=== PATIENT | female | born 1965 | race Caucasian/White ===

== ENCOUNTER 2016-08-05 16:24 | Inpatient (IN) ==
[2016-08-05] MEDS ORDERED: MORPHINE 2 MG/1 ML SYRINGE IV STA (17:31)
[2016-08-05] MEDS ORDERED: ONDANSETRON 4 MG/2 ML VIAL IV STA (17:31)
[2016-08-05] MEDS ORDERED: ONDANSETRON 4 MG/2 ML VIAL ONE (18:02)
[2016-08-05] MEDS ORDERED: MORPHINE 2 MG/1 ML SYRINGE ONE (18:02)
--- NOTE | 2016-08-05 18:13 | XRay Report ---
Portable chest Date: 08/05/2016 Clinical history: Generalized abdominal pain Comparison: 05/14/2016 Technique: Portable AP sitting chest Findings: The heart is minimally enlarged. Expiratory chest with atelectasis at the lung bases. Stable mediastinum with degenerative changes. Impression: Expiratory chest with atelectasis at the lung bases. PROCEDURE INTERPRETED AT [facility] DEPARTMENT OF RADIOLOGY Final Report Signed by: Dr. Ara Shin
[2016-08-05 18:31] LABS: Basophils % 0.8 % (0.0-0.8); Eosinophils # 0.1 10*3/uL (0.0-0.87); Hemoglobin 10.7 GM/DL (12.0-16.0); Immature Granulocytes % 0.4 %; Immature Granulocytes Absolute 0.01 #; Lymphocytes # 1.1 10*3/uL (1.4-4.0); Lymphocytes % 42.7 % (21.3-54.2); Mean Corpuscular HGB Conc 31.5 GM/DL (32-36); Mean Corpuscular Hemoglobin 26 PG (27-34); Mean Corpuscular Volume 82.3 FL (87-102); Mean Platelet Volume 9.4 FL (9.6-12.0); Monocytes # 0.2 10*3/uL (0.11-0.8); Monocytes % 7.8 % (1.7-12.7); Neutrophils # 1.2 10*3/uL (1.4-7.4); Neutrophils % 46.3 % (38.7-73.9); Platelet Count 64 T/CUMM (130-400); Red Blood Count 4.13 MC/CUMM (3.8-5.5); Red Cell Distribution Width 15.5 % (9.3-17.3); White Blood Count 2.6 T/CUMM (4-12)
--- NOTE | 2016-08-05 18:44 | CT Report ---
Referring physician: Raghu Arce EXAM: CT abdomen and pelvis with contrast DATE: 08/05/2016 COMPARISON: 11/28/2015 REASON: Right abdominal pain with rebound TECHNIQUE: Axial images of the abdomen and pelvis were obtained after administration of 100 cc of Omnipaque 350 IV contrast. Oral contrast was also administered. Coronal and sagittal reformatted images were also provided. Total DLP is 1868.30 mGy*cm. FINDINGS: The heart is enlarged with pericardial effusion which measures 26 mm in depth posteriorly on both scans. Tiny bilateral pleural effusions with progressive atelectasis/groundglass opacities at the visualized lung bases. Minimal motion artifact on the scans. Elongation of the right lobe of the liver. The liver has an irregular contour with multiple ill-defined hypodensities. The largest finding still measures 12 mm in the posterior right lobe. Prior cholecystectomy with no dilated ducts. Persistent splenomegaly with a splenic index of 2663 compared to 2622 on the previous exam. Persistent varices with some recanalization of the umbilical vein. The pancreas, adrenal glands, and kidneys are stable in appearance. The abdominal aorta is normal in size with no adjacent adenopathy. No significant dilatation of the small bowel. Significant fecal material throughout the tortuous colon. Limited evaluation of the bowel without oral contrast including the appendix which is not identified. No evidence of diverticulitis or free air with very minimal free fluid. Prior hysterectomy with no definite urinary bladder pathology. Degenerative changes are noted. Thinning of the abdominal wall musculature especially at the level of the umbilicus. IMPRESSION: Cardiomegaly with stable pericardial effusion. Tiny bilateral pleural effusions with progressive atelectasis/groundglass opacities at the lung bases. Persistent enlargement of the the liver which has an irregular contour which can be seen with hepatocellular disease such as cirrhosis. Numerous small hypodensities are noted in the liver which have not changed significantly in size but have increased in number. These findings could be related to persistent cirrhotic nodules but again it is difficult to exclude metastatic disease with these findings. Stable splenomegaly with a splenic index of 2663. Varices with persistent minimal ascites. Significant increased fecal material in the colon consistent with constipation. Limited evaluation of bowel without oral contrast including the appendix which is not identified. Prior hysterectomy and cholecystectomy. The CT exam was performed using one or more of the following dose reduction techniques: Automated exposure control and adjustment of the mA and/or kV according to patient size. PROCEDURE INTERPRETED AT [facility] DEPARTMENT OF RADIOLOGY Final Report Signed by: Dr. Ara Shin
--- NOTE | 2016-08-05 18:47 | Emergency Department Note ---
Enoc Torres Brooke, am scribing for, and in the presence of, Raghu Arce MD 17:37. Yazmin Torres Phillip K, MD, personally performed the services described in this documentation, ascribed by Marian Stubbs in my presence, and it is both accurate and complete 846 . Arrival <Alek Neely - Last Filed: 08/05/16 19:40> - Arrival ED Nursing Triage Note: PT C/O PAIN TO RIGHT ABD THAT RADIATES TO RIGHT FLANK PAIN. PT HAS KNOWN LIVER LESIONS. PT STATES SHE HAS NOT HAD NORMAL BM IN 6 DAYS. REPORTS PASSING LIGHT RED BLOOD FROM RECTUM TODAY. DENIES DYSURIA OR HEMATURIA. Mode of Arrival: Ambulatory Limitations: No Limitations Source: Patient, RN Notes Reviewed - History of Present Illness Onset (ago): month(s) (2) Date of Last Menstrual Period: HYST <Raghu Arce - Last Filed: 08/06/16 06:07> - Arrival Chief Complaint: Abdominal / Flank Pain Stated Complaint: R side pain,lesions on liver,blood in stole Time Seen by Provider: 08/05/16 16:55 - History of Present Illness HPI Narrative: Patient is a 50 year old female who presents to the ED with c/o abdominal pain that is located on the right side. Patient says she has been having pain for the past two months and that Dr. Flanagan has been dealing with it. She describes the pain as "menstrual cramps" but states she has had a hysterectomy. She says her abdomen feels distended. Patient says she has had a "radioactive egg test" and it was negative. She says she had a bone marrow test that came out fine. Patient says Dr. Flanagan told her that she has lesions on her liver. Patient says she has not had a bowel movement in a week. She was given Reglan but says it makes her "sick." Patient says she is unable to eat because the pain is worsened by food. Patient says she has lost a lot of weight. She denies any fever but says she has had nausea and vomiting. Patient also complains of ecchymosis to her left arm that was caused from a fall. Patient has PMHx of PVD , heart murmur, depression, vertigo, dyslipidema, diabetes, kidney stones, and anemia. Patient is not a smoker and does not drink any alcohol. Patient sees a Primary Care Provider at the [facility]. (Marian Stubbs) Patient is a 50 year old female who presents to the ED with c/o abdominal pain that is located on the right side. Patient says she has been having pain for the past two months and that Dr. Flanagan has been dealing with it. She describes the pain as "menstrual cramps" but states she has had a hysterectomy. She says her abdomen feels distended. Patient says she has had a "radioactive egg test" and it was negative. She says she had a bone marrow test that came out fine. Patient says Dr. Flanagan told her that she has lesions on her liver. Patient says she has not had a bowel movement in a week. She was given Reglan but says it makes her "sick." Patient says she is unable to eat because the pain is worsened by food. Patient says she has lost a lot of weight. She denies any fever but says she has had nausea and vomiting. Patient also complains of ecchymosis to her left arm that was caused from a fall. Patient has PMHx of PVD , heart murmur, depression, vertigo, dyslipidema, diabetes, kidney stones, and anemia. Patient is not a smoker and does not drink any alcohol. Patient sees a Primary Care Provider at the [facility]. (Raghu Arce) Allergies/Adverse Reactions: Allergies Allergy/AdvReac Type Severity Reaction Status Date / Time hydrocodone Allergy ITCHING Verified 08/05/16 16:32 promethazine [From Phenergan] AdvReac Redness of Verified 08/05/16 16:32 Skin Home Medications: Home Medications Medication Instructions Recorded Confirmed Type Doxepin [SINEquan] 100 mg PO BEDTIME 12/27/14 08/05/16 History Estrogens(Conj) Tab [Premarin Tab] 0.9 mg PO DAILY 12/27/14 08/05/16 History Furosemide Tab [Lasix Tab] 20 mg PO DAILY 12/27/14 08/05/16 History Insulin Aspart [NovoLOG FlexPen] 15 unit SUBCUT TID 12/27/14 08/05/16 History Insulin Glargine [Lantus] 60 unit SUBCUT BID 12/27/14 08/05/16 History Prazosin [Minipress] 2 mg PO BEDTIME 12/27/14 08/05/16 History QUEtiapine [SEROquel] 800 mg PO BEDTIME 12/27/14 08/05/16 History Zolpidem [Ambien] 2.5 mg PO BEDTIME 12/27/14 08/05/16 History metFORMIN [Glucophage] 1,000 mg PO BID W/MEALS 12/27/14 08/05/16 History Levothyroxine Tab [Synthroid Tab] 100 mcg PO DAILY 11/28/15 08/05/16 History Omeprazole 40 mg PO DAILY 05/08/16 08/05/16 History clonazePAM [Clonazepam] 1 mg PO BID 05/08/16 08/05/16 History PARoxetine [Paxil] 40 mg PO DAILY tablet 05/17/16 08/05/16 Rx Review of System - Review of System 12 point system: reviewed and no additional remarkable complaints except as stated - Review of System Constitutional: Absent: fever Respiratory: Absent: respiratory distress Gastrointestinal: Present: abdominal pain (right side), nausea, vomiting, constipation Skin: Present: other (ecchymosis left arm). Absent: rash <Raghu Arce - Last Filed: 08/06/16 06:07> Medical,Surgical,& Family Hx - Medical History Cardio: History of: PVD, Cardiovascular Problems (HEART MURMUR) Psychological: History of: Depression, Psychiatric Problems (night terrors) Neurology: History of: Vertigo Endocrine: History of: Diabetes Mellitus (IDDM), Diabetes Mellitus (NIDDM), Dyslipidemia Genitourinary: History of: Kidney Stones Gastrointestinal: History of: Liver Problems (liver lesions) Hematology: History of: Anemia - Surgical History Abdominal Surgeries: Surgical HX of: Cholecystectomy Reproductive Surgeries: Surgical HX of;: Hysterectomy - Family History Family History: Reports;: Family Cancer (mother, four maternal aunts, maternal grandmother), Family Heart Disease (paternal), Family Hypertension (paternal) - Social History Smoking Status: Former smoker Frequency of Alcohol Use: None Type of Drug Use: None <Raghu Arce - Last Filed: 08/06/16 06:07> Exam - General General appearance: alert, in no apparent distress - Head Head exam: Present: atraumatic, normocephalic - Eye Eye exam: Present: normal appearance, PERRL, EOMI - ENT ENT exam: Present: mucous membranes dry - Neck Neck exam: Present: normal inspection - Chest Chest inspection: Present: normal inspection, symmetric chest wall rise - Respiratory Respiratory exam: Present: normal lung sounds bilaterally - Cardiovascular Cardiovascular exam: Present: regular rate, normal rhythm, normal heart sounds - Abdominal Exam Abdominal exam: Present: distention, tenderness (to direct palpation mostly on right side but all over.), rebound, normal bowel sounds, other (Referred pain to the RLQ). Absent: soft - Extremities Exam Extremities exam: Present: normal inspection - Back Exam Back exam: Present: normal inspection - Neurological Exam Neurological exam: Present: alert, oriented X3 - Psychiatric Psychiatric exam: Present: normal affect, normal mood - Skin Skin exam: Present: warm, dry, intact, normal color <Raghu Arce - Last Filed: 08/06/16 06:07> Vital Signs: Vital Signs Temperature 97.5 F L 08/06/16 00:00 Pulse Rate 78 08/06/16 00:00 Respiratory Rate 18 08/06/16 02:00 Blood Pressure 94/51 08/06/16 00:00 O2 Sat by Pulse Oximetry 94 L 08/05/16 21:42 Course <Alek Neely - Last Filed: 08/05/16 19:40> <Raghu Arce - Last Filed: 08/06/16 06:07> Course Narrative: This patient was evaluated with lab work and CT scan of the abdomen and pelvis as well as chest x-ray. Her urinalysis is still pending right now but her lab work shows stable pancytopenia related to her cirrhosis with portal hypertension and thrombocytopenia. Her alkaline phosphatase is slightly elevated but the rest of her LFTs and lipase are normal. Her CT scan shows really no changes compared to a CT of abdomen and pelvis from November 2015. The report was read as constipation with nonvisualization of the appendix but I feel like I can see the appendix very easily on the CT scan and it has air in it and does not look dilated, thickened, or have any significant stranding around it. The skin is demonstrating some ascites fluid which is likely due to the patient's cirrhosis and portal hypertension with recanalization of her umbilical vein with multiple varices but this does make the study difficult as far as stranding goes because of some fluid down there already. Because she is not able to tolerate p.o. she has had chronic abdominal pain being worked up by her finished cloth checker I recommended medical admission for pain medication and further treatment after being seen by her finished cloth checker tomorrow. I have spoken with Dr. Castillo who agreed to send someone to come and see the patient from the hospitalist service. (Alek Neely) Results - Labs CBC & BMP: 08/05/16 18:22 08/05/16 18:22 <Alek Neely - Last Filed: 08/05/16 19:40> - Labs CBC & BMP: 08/05/16 18:22 08/05/16 18:22 Lab Results: I have reviewed the patients labs - Diagnostic Findings Procedure: Chest x-ray: report reviewed by me (Expiratory chest with atelectasis at the lung bases.), CT Abdomen and Pelvis: report reviewed by me ( cirrhosis, small pleural effusions, small pericardial effusion unchanged, varices, constipation, the appendix was not identified.) <Raghu Arce - Last Filed: 08/06/16 06:07> - Labs Labs: Laboratory Tests 08/05/16 08/05/16 17:54 18:22 WBC 2.6 L Hgb 10.7 L Hct 34.0 L MCV 82.3 L MCH 26 L MCHC 31.5 L Plt Count 64 L MPV 9.4 L Neut # (Auto) 1.2 L Lymph # (Auto) 1.1 L POC Creatinine 0.46 L (Marian Stubbs) Laboratory Tests 08/05/16 08/05/16 17:54 18:22 WBC 2.6 L Hgb 10.7 L Hct 34.0 L MCV 82.3 L MCH 26 L MCHC 31.5 L Plt Count 64 L MPV 9.4 L Neut # (Auto) 1.2 L Lymph # (Auto) 1.1 L POC Creatinine 0.46 L (Raghu Arce) Disposition Case discussed with: patient Time of Disposition: 19:42 <Alek Neely - Last Filed: 08/05/16 19:40> Case discussed with: patient <Raghu Arce - Last Filed: 08/06/16 06:07> Clinical Impression: Gastroenteritis, Abdominal pain Disposition: Still a Patient Condition: Stable
[2016-08-05 18:50] LABS: Albumin 3.6 G/DL (3.4-5.0); Bilirubin,Total 0.6 MG/DL (0.2-1.0); Calcium 8.6 MG/DL (8.5-10.1); Magnesium 1.5 MG/DL (1.8-2.4); Osmolality,Calculated 277.4 MOS/KG (273-304); Potassium 3.6 MMOL/L (3.5-5.1); Total Protein 7.5 G/DL (6.4-8.3)
[2016-08-05] MEDS ORDERED: SODIUM CHLORIDE 0.9% 1,000 ML IV STA (18:56)
--- NOTE | 2016-08-05 20:06 | Hospitalist History & Physical ---
Assessment and Plan - Time spent with patient Time spent with patient: Greater than 30 minutes (1) Right lower quadrant abdominal pain Status: Acute Assessment and plan: Patient has acute on chronic right lower quadrant abdominal pain. Will admit her and hydrate, provide parenteral antiemetics and analgesics overnight and ask her gastroenterology professor to reevaluate. I will defer any general surgical consultation to the GI service. Current Visit: Yes (2) Diabetes mellitus Status: Chronic Assessment and plan: Patient has diabetes mellitus and requires insulin. Will continue her current insulin regimen and begin Accu-Cheks with sliding scale. Current Visit: Yes Qualifiers: Diabetes mellitus type: type 2 (3) Micronodular cirrhosis of liver, non-alcoholic Status: Chronic Assessment and plan: Patient apparently has a history of cirrhosis of the liver. Have consulted gastroenterology to give further history and any new recommendations at this time. Current Visit: No (4) Pancytopenia Problem details: longstanding pancytopenia Status: Chronic Assessment and plan: Patient has pancytopenia which is chronic and likely secondary to underlying liver disease. She has had prior bone marrow biopsy. Her counts are currently stable at this time there is no evidence of active bleeding. We will continue to follow. Current Visit: No (5) Gastroparesis Status: Chronic Assessment and plan: Patient has history of gastroparesis and states that she is intolerant to her Reglan. Again we will hydrate and consult gastroenterology for further recommendations. Current Visit: Yes (6) Constipation Status: Chronic Assessment and plan: Patient has history of chronic constipation. CAT scan reveals large amount of feces. This may be exacerbating her pain and I will attempt to provide lactulose overnight if she can tolerate. Gastroenterology has been consulted as well. Current Visit: Yes History of Present Illness Chief complaint: Abdominal pain History of present illness: Ms. Cummings is a 50 year old female who is been followed by Dr. Flanagan for approximately 6 months secondary to chronic abdominal pain. She states that she has had upper and lower endoscopy as well as gastric emptying study. She has continued pain which increased in intensity and is localized to the right lower quadrant today. She states that she was prescribed metoclopramide approximately 12 days ago for gastroparesis however it makes her nauseated and vomit. She also states that she stays constipated and only has a bowel movement once every 12 days and does have occasional rectal bleeding associated with the last occurring this morning. She states that she feels cold and then hot and has had some subjective fevers at home. There has been no weight loss, chest pain, shortness breath, cough, sputum production, abnormal bleeding or bruising. She was evaluated in our emergency room today because of continued right lower quadrant pain is felt that she would benefit from observation, hydration, gastroenterology and/or general surgical consultation to assist. Home Medications Medication Instructions Recorded Confirmed Type Doxepin [SINEquan] 100 mg PO BEDTIME 12/27/14 08/05/16 History Estrogens(Conj) Tab [Premarin Tab] 0.9 mg PO DAILY 12/27/14 08/05/16 History Furosemide Tab [Lasix Tab] 20 mg PO DAILY 12/27/14 08/05/16 History Insulin Aspart [NovoLOG FlexPen] 15 unit SUBCUT TID 12/27/14 08/05/16 History Insulin Glargine [Lantus] 60 unit SUBCUT BID 12/27/14 08/05/16 History Prazosin [Minipress] 2 mg PO BEDTIME 12/27/14 08/05/16 History QUEtiapine [SEROquel] 800 mg PO BEDTIME 12/27/14 08/05/16 History Zolpidem [Ambien] 2.5 mg PO BEDTIME 12/27/14 08/05/16 History metFORMIN [Glucophage] 1,000 mg PO BID W/MEALS 12/27/14 08/05/16 History Levothyroxine Tab [Synthroid Tab] 100 mcg PO DAILY 11/28/15 08/05/16 History Omeprazole 40 mg PO DAILY 05/08/16 08/05/16 History clonazePAM [Clonazepam] 1 mg PO BID 05/08/16 08/05/16 History PARoxetine [Paxil] 40 mg PO DAILY tablet 05/17/16 08/05/16 Rx Allergies Allergy/AdvReac Type Severity Reaction Status Date / Time hydrocodone Allergy ITCHING Verified 08/05/16 16:32 promethazine [From Phenergan] AdvReac Redness of Verified 08/05/16 16:32 Skin Medical,Surgical,& Family Hx - Medical History Cardio: History of: PVD, Cardiovascular Problems (HEART MURMUR) Psychological: History of: Depression, Psychiatric Problems (night terrors) Neurology: History of: Vertigo Endocrine: History of: Diabetes Mellitus (NIDDM), Dyslipidemia Genitourinary: History of: Kidney Stones Gastrointestinal: History of: Liver Problems (liver lesions) Hematology: History of: Anemia - Surgical History Abdominal Surgeries: Surgical HX of: Cholecystectomy Reproductive Surgeries: Surgical HX of;: Hysterectomy - Family History Family History: Reports;: Family Cancer (mother, four maternal aunts, maternal grandmother), Family Heart Disease (paternal), Family Hypertension (paternal) - Social History Smoking Status: Former smoker Frequency of Alcohol Use: None Type of Drug Use: None 12 point system: reviewed and no additional remarkable complaints except as stated Exam - Constitutional Vitals: Period Temp Pulse Resp BP Sys/Leija Pulse Ox Last 24 Hr 97.6 F 90 18 117/78 96 General appearance: mild distress - Head Head exam: Present: normocephalic, atraumatic - Eye Eye exam: Present: EOMI. Absent: scleral icterus Pupils: Present: NICOLA - ENT ENT exam: Present: normal oropharynx - Neck Neck exam: Present: normal inspection. Absent: lymphadenopathy, meningismus, tenderness, thyromegaly - Respiratory Respiratory exam: Present: clear to auscultation bilaterally. Absent: accessory muscle use, rales, rhonchi, wheezes - Cardiovascular Cardiovascular exam: Present: regular rate and rhythm. Absent: gallop, JVD, systolic murmur, tachycardia - GI/Abdominal GI/Abdominal exam: Present: normal bowel sounds, tenderness (She has diffuse tenderness which is greater in the right lower quadrant with no rebound noted at this time), soft. Absent: distended, mass - Extremities Exam Extremities exam: Present: normal capillary refill. Absent: calf tenderness, edema - Back Exam Back exam: Present: normal inspection. Absent: CVA tenderness (L), CVA tenderness (R) - Neurological Exam Neurological exam: Present: alert, oriented X3, CN II-XII intact. Absent: motor sensory deficit - Psychiatric Psychiatric exam: Present: normal affect, normal mood. Absent: agitated, anxious - Skin Skin exam: Present: warm, dry. Absent: petechiae, rash Results - Labs CBC & BMP: 08/05/16 18:22 08/05/16 18:22 Lab Results: I have reviewed the past 24 hour labs - Diagnostic Findings Procedure: CT Abdomen and Pelvis: report reviewed by me
[2016-08-05 20:15] LABS: INR 1.1; PT Patient Result 12.1 SECS; Partial Thromboplastin Time 28.4 SECS (0-40)
[2016-08-05 20:16] LABS: Apearance,Urine CLEAR (Clear); Bilirubin,Urine Negative (Negative); Blood, Urine Negative (Negative); Glucose,Urine (UA) Negative (Negative); Ketones,Urine Negative (Negative); Nitrite,Urine Negative (Negative); Protein,Urine Negative; RBC,Urine <1 /HPF (0-4); Squamous Epithelial Cell,Urine Occasional /HPF (0-10); Urine Color Yellow (Yellow); Urine Specific Gravity > 1.060 (1.001-1.035); WBC,Urine <1 /HPF (0-6)
[2016-08-05] MEDS ORDERED: GLUCAGON 1 MG VIAL IM PRN (21:41)
[2016-08-05] MEDS ORDERED: QUEtiapine 100 MG TABLET PO SCH (21:41)
[2016-08-05] MEDS ORDERED: MAGNESIUM SULF INJ 3 GM in SODIUM CHLORIDE 0.9% 100 ML IV ONE (21:41)
[2016-08-05] MEDS ORDERED: MORPHINE 2 MG/1 ML SYRINGE IV PRN (21:41)
[2016-08-05] MEDS ORDERED: ONDANSETRON 4 MG/2 ML VIAL IV PRN (21:41)
[2016-08-05] MEDS ORDERED: DEXTROSE 50% 25 GM/50 ML VIAL IV PRN (21:41)
[2016-08-05] MEDS ORDERED: LACTULOSE 20 GM/30 ML UDCUP PO SCH (21:41)
[2016-08-05] MEDS: SODIUM CHLOR 0.9% KCL 40 MEQ 40 MEQ/1,000 ML BAG IV SCH (23:36)
[2016-08-05] MEDS: ZALEPLON 5 MG CAPSULE PO SCH (23:50)
[2016-08-05] MEDS: PRAZOSIN 1 MG CAPSULE PO SCH (23:51)
[2016-08-05] MEDS: clonazePAM 0.5 MG TABLET PO SCH (23:51)
[2016-08-05] MEDS: DOXEPIN 100 MG CAPSULE PO SCH (23:52)
[2016-08-05] MEDS: INSULIN GLARGINE 100 UNIT/ML SUBCUT SCH (23:55)
[2016-08-05] MEDS: INSULIN REGULAR 100 UNIT/ML SUBCUT SCH (23:55)
[2016-08-06 06:00] LABS: Basophils % 0.4 % (0.0-0.8); Eosinophils # 0.1 10*3/uL (0.0-0.87); Hematocrit 31.5 VOL% (35.7-47.0); Hemoglobin 9.7 GM/DL (12.0-16.0); Lymphocytes # 1.2 10*3/uL (1.4-4.0); Lymphocytes % 49.4 % (21.3-54.2); Mean Corpuscular HGB Conc 30.8 GM/DL (32-36); Mean Corpuscular Hemoglobin 26 PG (27-34); Mean Corpuscular Volume 83.6 FL (87-102); Mean Platelet Volume 9.7 FL (9.6-12.0); Monocytes # 0.2 10*3/uL (0.11-0.8); Monocytes % 7.2 % (1.7-12.7); Platelet Count 70 T/CUMM (130-400); Red Blood Count 3.77 MC/CUMM (3.8-5.5); Red Cell Distribution Width 15.8 % (9.3-17.3); White Blood Count 2.5 T/CUMM (4-12)
[2016-08-06 06:19] LABS: Hypochromasia 1+; Ovalocytes Slight; Platelet Estimate Decreased
[2016-08-06 06:20] LABS: Microcytosis Slight
[2016-08-06 06:32] LABS: Albumin 3.1 G/DL (3.4-5.0); Bilirubin,Total 1.1 MG/DL (0.2-1.0); Calcium 7.9 MG/DL (8.5-10.1); Osmolality,Calculated 287.7 MOS/KG (273-304); Potassium 3.8 MMOL/L (3.5-5.1); Total Protein 6.6 G/DL (6.4-8.3)
[2016-08-06] MEDS: LEVOTHYROXINE 100 MCG TABLET PO SCH (06:46)
[2016-08-06] MEDS ORDERED: PANTOPRAZOLE 40 MG TABLET PO SCH (09:00)
--- NOTE | 2016-08-06 09:08 | Gastrointestinal Progress Note ---
Assessment and Plan (1) Constipation Status: Chronic Assessment and plan: As mentioned in the office note from 07/24/16 and in my summary below, this patient's family has a history of colonic inertia and she has a history of chronic constipation which is required Linzess and MiraLAX. 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 Her compliance with the outpatient regimen is not clear. She does not need narcotics she could possibly have her pain treated with some Toradol but I would use this sparingly. We will clean her out with a bowel prep which has worked in the past, clear liquid diet, MiraLAX 3 times daily for her bowel movements, and will restart her outpatient Linzess 290 mg per day. I suspect this will get her bowels running adequately. Whether we can keep them running is another question when she leaves the hospital. She has a mindset that she will likely only get cured with surgery. Current Visit: Yes (2) Micronodular cirrhosis of liver, non-alcoholic Status: Chronic Assessment and plan: This patient has a micronodular cirrhosis which has resulted in hepatic encephalopathy but not ascites in the past. Her ammonia level is slightly elevated at 68 but she is also been not having any bowel movements. She is not on any lactulose at the present time as I am trying to avoid the bloating with this medication. This is made her sick in the past and she does not seem confused to me now. We will check this on a daily basis as we get her bowels running. If it lapses above 80-90 mg/dL we will simply have to start the lactulose again or put her on Xifaxan 550 mg p.o. twice daily as an alternative. Current Visit: No (3) Pancytopenia Problem details: longstanding pancytopenia Status: Chronic Assessment and plan: Dr. Kee has evaluated this in the past with a bone marrow biopsy and this was relatively unrevealing. She is getting iron supplementation, her hematocrit is stable at 31-34%. No further workup on this issue. Current Visit: No (4) Hepatic encephalopathy Status: Acute Assessment and plan: As mentioned above I believe this is probably stable at the present time, we will continue to watch her mentation and decide whether or not further intervention with lactulose initiation or side effects and will be required based on how this trends after the patient is emptying her colon better. Current Visit: No Gastroenterology - PN: Subj Interval history: I have been seeing this patient for multiple problems since November 2015. She has most recently been seen for the same problem with which she presents as an outpatient as recently as 07/24/16 with "intractable" constipation. It appears that her mother had a history of what sounds like colonic inertia and she feels that she is developing the same. I am unclear as to whether or not she is following her bowel regimen at home. She takes Linzess as an outpatient 290 mg per day and was recently given a bowel prep and told to start taking her MiraLAX at a higher level of use 2-3 times a day as needed for her constipation in addition to taking the Linzess. She was recently taken off of her lactulose hoping that the decrease in bloating would lead to better digestion albeit in a slightly higher risk of hepatic encephalopathy which she does not appear to be displaying at this time. She does have cirrhosis documented by biopsy which is thought to be caused by nonalcoholic fatty liver disease as well as gastritis and gastroparesis. She has anemia thought to be iron deficiency by Dr. Kee. She has had both colonoscopy and EGD with most recent colonoscopy being on 12/03/15 which was completely normal. EGD demonstrated linear gastritis somewhat dilated duodenum. Please see my included notes in the front of the chart for all these relevant details. Currently we are trying to treat her gastroparesis with some Reglan and she has been switched from liquid to the p.o. pills and she found liquid difficult to tolerate. Ultimately I believe her goal is to try and get a diagnosis of colonic inertia so she can have a surgery resulting in a subtotal colectomy which would cure her constipation. In order to meet criteria to have this done she would have to fail a Sitz marker study on "reasonable therapy". Exam (Progress Note) - Constitutional Vitals: Period Temp Pulse Resp BP Sys/Leija Pulse Ox Last 24 Hr 97.5 F-98.5 F 76-98 16-20 94-124/51-74 92-95 General appearance: mild distress - Head Head exam: Present: normocephalic - Eye Eye exam: Present: EOMI - Respiratory Respiratory exam: Present: clear to auscultation bilaterally. Absent: rhonchi, stridor, wheezes - Cardiovascular Cardiovascular exam: Present: regular rate and rhythm - GI/Abdominal GI/Abdominal exam: Present: normal bowel sounds, distended, tenderness, soft. Absent: ascites, guarding, rebound - Neurological Exam Neurological exam: Present: alert, oriented X3, CN II-XII intact - Psychiatric Psychiatric exam: Present: normal affect, depressed - Skin Skin exam: Present: warm Results - Labs CBC & BMP: 08/06/16 05:32 08/06/16 05:32
[2016-08-06] MEDS: KETOROLAC 30 MG/1 ML VIAL IV PRN ×2 (09:38→16:28)
[2016-08-06] MEDS: INSULIN REGULAR 100 UNIT/ML SUBCUT SCH ×4 (09:39→20:55)
[2016-08-06] MEDS: SODIUM PHOSPHATE ENEMA 133 ML BOTTLE RECTAL SCH ×2 (09:39→10:38)
[2016-08-06] MEDS: clonazePAM 0.5 MG TABLET PO SCH ×2 (09:39→21:15)
[2016-08-06] MEDS: FUROSEMIDE 20 MG TABLET PO SCH (09:39)
[2016-08-06] MEDS: PARoxetine 20 MG TABLET PO SCH (09:39)
[2016-08-06] MEDS: INSULIN GLARGINE 100 UNIT/ML SUBCUT SCH ×2 (09:40→21:15)
[2016-08-06] MEDS: metFORMIN 500 MG TABLET PO SCH ×2 (09:40→18:49)
[2016-08-06] MEDS: INSULIN LISPRO 100 UNIT/ML SUBCUT SCH ×3 (09:40→18:49)
[2016-08-06] MEDS ORDERED: POLYETHYLENE GLYCOL POWDER 255 GM BOTTLE PO ONE (10:00)
[2016-08-06] MEDS: ESTROGENS (CONJ) 0.3 MG TABLET PO SCH (10:38)
[2016-08-06] MEDS: LINACLOTIDE 145 MCG CAPSULE PO SCH (10:38)
[2016-08-06] MEDS: SODIUM CHLOR 0.9% KCL 40 MEQ 40 MEQ/1,000 ML BAG IV SCH ×3 (10:39→23:04)
[2016-08-06] MEDS: METOCLOPRAMIDE 10 MG/2 ML VIAL IV SCH ×2 (12:46→19:24)
[2016-08-06] MEDS ORDERED: MORPHINE 2 MG/1 ML SYRINGE IV PRN (13:34)
--- NOTE | 2016-08-06 14:11 | Hospitalist Progress Note ---
Assessment and Plan - Time spent with patient Time spent with patient: Greater than 30 minutes (1) Right flank pain Status: Acute Assessment and plan: CT is inconclusive. Patient states she had no relief with bowel movement, and that in fact it hurts more. Appendix was not visualized. We'll consult surgery. Current Visit: Yes (2) Constipation Status: Chronic Assessment and plan: Has had many bowel movements with enemas. Continue to manage Current Visit: Yes (3) Micronodular cirrhosis of liver, non-alcoholic Status: Chronic Assessment and plan: Pancytopenia and elevated ammonia levels. GI is involved. Appreciate assistance. Current Visit: No (4) Diabetes mellitus Status: Chronic Assessment and plan: Continue current management. Current Visit: Yes Qualifiers: Diabetes mellitus type: type 2 (5) Hypothyroidism Status: Acute Assessment and plan: Obtain TSH. Continue management. Current Visit: Yes Hospitalist: Subjective Interval history: Admitted for evaluation of abdominal pain, reports worsening right lower quadrant pain. Exam - Constitutional Vitals: Period Temp Pulse Resp BP Sys/Leija Pulse Ox Last 24 Hr 97.5 F-98.5 F 76-98 16-20 94-124/51-74 92-95 General appearance: no acute distress - Head Head exam: Present: normocephalic, atraumatic - Eye Eye exam: Present: EOMI Pupils: Present: NICOLA - ENT ENT exam: Present: normal exam - Neck Neck exam: Present: normal inspection - Respiratory Respiratory exam: Present: clear to auscultation bilaterally. Absent: rhonchi, wheezes - Cardiovascular Cardiovascular exam: Present: regular rate and rhythm. Absent: gallop, rubs, systolic murmur - GI/Abdominal GI/Abdominal exam: Present: normal bowel sounds, tenderness, soft. Absent: distended, firm, guarding, rebound - Extremities Exam Extremities exam: Present: normal inspection. Absent: calf tenderness, edema Results - Labs CBC & BMP: 08/06/16 05:32 08/06/16 05:32 Lab Results: I have reviewed the past 24 hour labs Quality Measures - VTE Contraindication to Pharmacological VTE Prophylaxis: Thrombocytopenia
--- NOTE | 2016-08-06 16:42 | General Surgery Consult Note ---
Assessment and Plan - Time spent with patient Time spent with patient: Less than 30 minutes (1) Right lower quadrant abdominal pain Status: Acute Assessment and plan: The etiology of her pain is unclear. It appears to be chronic. It may be related to her recent stopping of narcotics. Her pain is really more in her groin on exam than on her abdomen. There does not appear to be much association with her chronic GI complaints. I cannot detect a hernia on physical exam with her coughing straining or Valsalva. I reviewed her CT scan images myself and cannot see a hernia. I do not see much that I can offer surgically that is likely to help. She certainly is a very high surgical risk with her cirrhosis. I think that it would be worthwhile for her to be evaluated by her pain management doctors for consideration of a nerve block in her groin. This could be accomplished as an outpatient with her regular physician. Current Visit: Yes History of Present Illness Chief complaint: abdominal pain History of present illness: Ms. Cummings is a 50 year old female Who for over a year has had pain in her right lower quadrant. She describes the pain as being very low in her right lower quadrant and more in her groin area. This pain is worse when she moves or stands or twists. She has chronic GI complaints that are not really affected by the pain. She has chronic bloating. She describes the pain as being moderate to severe. She sees the pain treatment clinic at the [facility]. She is been on chronic narcotics but they stopped this about a month ago. Home Medications Medication Instructions Recorded Confirmed Type Doxepin [SINEquan] 100 mg PO BEDTIME 12/27/14 08/05/16 History Estrogens(Conj) Tab [Premarin Tab] 0.9 mg PO DAILY 12/27/14 08/05/16 History Furosemide Tab [Lasix Tab] 20 mg PO DAILY 12/27/14 08/05/16 History Insulin Aspart [NovoLOG FlexPen] 15 unit SUBCUT TID 12/27/14 08/05/16 History Insulin Glargine [Lantus] 60 unit SUBCUT BID 12/27/14 08/05/16 History Prazosin [Minipress] 2 mg PO BEDTIME 12/27/14 08/05/16 History QUEtiapine [SEROquel] 800 mg PO BEDTIME 12/27/14 08/05/16 History Zolpidem [Ambien] 2.5 mg PO BEDTIME 12/27/14 08/05/16 History metFORMIN [Glucophage] 1,000 mg PO BID W/MEALS 12/27/14 08/05/16 History Levothyroxine Tab [Synthroid Tab] 100 mcg PO DAILY 11/28/15 08/05/16 History Omeprazole 40 mg PO DAILY 05/08/16 08/05/16 History clonazePAM [Clonazepam] 1 mg PO BID 05/08/16 08/05/16 History PARoxetine [Paxil] 40 mg PO DAILY tablet 05/17/16 08/05/16 Rx Allergies Allergy/AdvReac Type Severity Reaction Status Date / Time hydrocodone Allergy ITCHING Verified 08/05/16 16:32 promethazine [From Phenergan] AdvReac Redness of Verified 08/05/16 16:32 Skin Medical,Surgical,& Family Hx - Medical History Cardio: History of: PVD, Cardiovascular Problems (HEART MURMUR) Psychological: History of: Depression, Psychiatric Problems (night terrors) Neurology: History of: Vertigo Endocrine: History of: Diabetes Mellitus (IDDM), Diabetes Mellitus (NIDDM), Dyslipidemia Genitourinary: History of: Kidney Stones Gastrointestinal: History of: Liver Problems (liver lesions), GI Problems ( constipation) Hematology: History of: Anemia - Surgical History Thoracic Surgeries: Surgical HX of;: Lithotripsy Abdominal Surgeries: Surgical HX of: Cholecystectomy Reproductive Surgeries: Surgical HX of;: Hysterectomy - Family History Family History: Reports;: Family Cancer (mother, four maternal aunts, maternal grandmother), Family Heart Disease (paternal), Family Hypertension (paternal) Denies;: Family Anesthesia Reaction, Family Diabetes, Family Hematology, Family Psychiatric Problems, Family Stroke, Additional Family History - Social History Smoking Status: Former smoker Frequency of Alcohol Use: None Type of Drug Use: None - Constitutional Constitutional: Absent: chills, fever(s) - Cardiovascular Cardiovascular: Absent: chest pain at rest, chest pain with activity, syncope - Respiratory Respiratory: Absent: dyspnea, hemoptysis, dyspnea on exertion - Gastrointestinal Gastrointestinal: Present: abdominal pain, bloating, constipation, cramping. Absent: hematemesis, hematochezia, nausea, vomiting, jaundice - Genitourinary Genitourinary: Absent: dysuria, hematuria - Musculoskeletal Musculoskeletal: Present: back pain - Neurological Neurological: Absent: focal weakness, syncope - Endocrine Endocrine: Absent: polyuria Hematologic/Lymphatic: Absent: easy bleeding, easy bruising Exam - Constitutional Vitals: Period Temp Pulse Resp BP Sys/Leija Pulse Ox Last 24 Hr 97.6 F 76 18 124/82 93 General appearance: no acute distress, morbidly obese - Head Head exam: Present: normocephalic - Eye Eye exam: Absent: scleral icterus - ENT Mouth exam: Present: normal voice - Neck Neck exam: Present: trachea midline. Absent: tenderness, thyromegaly - Respiratory Respiratory exam: Present: clear to auscultation bilaterally. Absent: accessory muscle use - Cardiovascular Cardiovascular exam: Present: RRR - GI/Abdominal GI/Abdominal exam: Present: soft. Absent: distended, guarding, hernia, mass, tenderness, rebound - Extremities Exam Extremities exam: Absent: edema - Back Exam Back exam: Present: normal inspection. Absent: vertebral tenderness - Neurological Exam Neurological exam: Present: alert, oriented X3. Absent: motor sensory deficit Speech: Present: normal - Skin Skin exam: Present: normal color Quality Measures - VTE Contraindication to Pharmacological VTE Prophylaxis: Thrombocytopenia Results - Labs CBC & BMP: 08/06/16 05:32 08/06/16 05:32 Lab Results: I have reviewed the past 24 hour labs - Diagnostic Findings Procedure: CT Abdomen and Pelvis: image reviewed by me, report reviewed by me
[2016-08-06] MEDS ORDERED: PANTOPRAZOLE 40 MG VIAL IV SCH (21:00)
[2016-08-06] MEDS: ZALEPLON 5 MG CAPSULE PO SCH (21:15)
[2016-08-06] MEDS: DOXEPIN 100 MG CAPSULE PO SCH (23:00)
[2016-08-06] MEDS: PRAZOSIN 1 MG CAPSULE PO SCH (23:00)
[2016-08-07] MEDS: METOCLOPRAMIDE 10 MG/2 ML VIAL IV SCH ×2 (00:05→06:22)
[2016-08-07] MEDS: SODIUM CHLOR 0.9% KCL 40 MEQ 40 MEQ/1,000 ML BAG IV SCH ×2 (05:36→13:30)
[2016-08-07 06:10] LABS: Free T4 (Free Thyroxine) 0.81 NG/DL (0.76-1.46); Thyroid Stimulating Hormone 1.02 uIU/ml (0.358-3.74)
[2016-08-07] MEDS: LEVOTHYROXINE 100 MCG TABLET PO SCH (06:22)
[2016-08-07] MEDS: INSULIN REGULAR 100 UNIT/ML SUBCUT SCH ×4 (08:26→20:49)
--- NOTE | 2016-08-07 08:55 | Gastrointestinal Progress Note ---
Assessment and Plan (1) Constipation Status: Chronic Assessment and plan: As mentioned in the office note from 07/24/16 and in my summary below, this patient's family has a history of colonic inertia and she has a history of chronic constipation which is required Linzess and MiraLAX. 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 Her compliance with the outpatient regimen is not clear. She does not need narcotics she could possibly have her pain treated with some Toradol but I would use this sparingly. We will clean her out with a bowel prep which has worked in the past, clear liquid diet, MiraLAX 3 times daily for her bowel movements, and will restart her outpatient Linzess 290 mg per day. I suspect this will get her bowels running adequately. Whether we can keep them running is another question when she leaves the hospital. She has a mindset that she will likely only get cured with surgery. 08/07/16--Again discussed with the patient all the reasons she does not want to be on morphine in terms of long-term suppression of her bowel function, and stopping the narcotics once again and she understands the reasoning behind this. We will try switching her over to oral Reglan and oral pantoprazole again. I will advance her diet. Her pain is now down to a 3 out of 10 and she is starting to have liquid bowel movements as a result of restarting her Linzess as well as the bowel prep she has been given. She is going to be on MiraLAX in addition. If she fails the MiraLAX and Linzess think we will do a Sitzmarks study as our next test to look for colonic inertia. Appreciate Dr. Beasley III evaluation for surgically related causes for her pain. This patient has been known to embellish. Current Visit: Yes (2) Micronodular cirrhosis of liver, non-alcoholic Status: Chronic Assessment and plan: This patient has a micronodular cirrhosis which has resulted in hepatic encephalopathy but not ascites in the past. Her ammonia level is slightly elevated at 68 but she is also been not having any bowel movements. She is not on any lactulose at the present time as I am trying to avoid the bloating with this medication. This is made her sick in the past and she does not seem confused to me now. We will check this on a daily basis as we get her bowels running. If it lapses above 80-90 mg/dL we will simply have to start the lactulose again or put her on Xifaxan 550 mg p.o. twice daily as an alternative. 08/07/16--the ammonia level is now down to 64. We will restart regular feedings and observe this as well as patient cognition. I would like to avoid lactulose seeing as this bloats her and may be adding to her nausea. We may have to start Xifaxan twice daily if starts to display hepatic encephalopathy. Current Visit: No (3) Pancytopenia Problem details: longstanding pancytopenia Status: Chronic Assessment and plan: Dr. Kee has evaluated this in the past with a bone marrow biopsy and this was relatively unrevealing. She is getting iron supplementation, her hematocrit is stable at 31-34%. No further workup on this issue. 08/07/16--no changes Current Visit: No (4) Hepatic encephalopathy Status: Acute Assessment and plan: As mentioned above I believe this is probably stable at the present time, we will continue to watch her mentation and decide whether or not further intervention with lactulose initiation or side effects and will be required based on how this trends after the patient is emptying her colon better. 08/07/16--consider Xifaxan if the ammonia level increases significantly with p.o. intake tomorrow. She is doing well tomorrow she can certainly be discharged on some Toradol orally. DO NOT RESTART NARCOTICS IN THIS PATIENT. Current Visit: No Gastroenterology - PN: Subj Interval history: Again discussed with the patient all the reasons she does not want to be on morphine in terms of long-term suppression of her bowel function, and stopping the narcotics once again and she understands the reasoning behind this. We will try switching her over to oral Reglan and oral pantoprazole again. I will advance her diet. Her pain is now down to a 3 out of 10 and she is starting to have liquid bowel movements as a result of restarting her Linzess as well as the bowel prep she has been given. She is going to be on MiraLAX in addition. If she fails the MiraLAX and Linzess think we will do a Sitzmarks study as our next test to look for colonic inertia. Appreciate Dr. Beasley III evaluation for surgically related causes for her pain. This patient has been known to embellish. Exam (Progress Note) - Constitutional Vitals: Period Temp Pulse Resp BP Sys/Leija Pulse Ox Last 24 Hr 97.6 F-98.6 F 74-88 18-20 111-145/63-83 90-96 General appearance: mild distress - Eye Eye exam: Present: EOMI Pupils: Present: NICOLA - Respiratory Respiratory exam: Present: clear to auscultation bilaterally - Cardiovascular Cardiovascular exam: Present: regular rate and rhythm - GI/Abdominal GI/Abdominal exam: Present: normal bowel sounds, distended, tenderness (Minimal right lower quadrant tenderness), soft. Absent: guarding, rebound - Neurological Exam Neurological exam: Present: alert - Psychiatric Psychiatric exam: Present: normal affect, normal mood - Skin Skin exam: Present: warm Results - Labs CBC & BMP: 08/06/16 05:32 08/06/16 05:32
[2016-08-07] MEDS ORDERED: POLYETHYLENE GLYCOL POWDER 17 GM PACK PO SCH (09:00)
[2016-08-07] MEDS: POLYETHYLENE GLYCOL POWDER 17 GM PACK PO SCH ×3 (09:13→20:52)
[2016-08-07] MEDS: PARoxetine 20 MG TABLET PO SCH (09:13)
[2016-08-07] MEDS: clonazePAM 0.5 MG TABLET PO SCH ×2 (09:13→20:52)
[2016-08-07] MEDS: FUROSEMIDE 20 MG TABLET PO SCH (09:14)
[2016-08-07] MEDS: INSULIN GLARGINE 100 UNIT/ML SUBCUT SCH ×2 (09:14→20:50)
[2016-08-07] MEDS: INSULIN LISPRO 100 UNIT/ML SUBCUT SCH ×3 (09:16→16:47)
[2016-08-07] MEDS: LINACLOTIDE 145 MCG CAPSULE PO SCH (09:20)
[2016-08-07] MEDS: metFORMIN 500 MG TABLET PO SCH ×2 (09:20→16:47)
[2016-08-07] MEDS: KETOROLAC 30 MG/1 ML VIAL IV PRN ×3 (09:21→21:25)
[2016-08-07] MEDS: ESTROGENS (CONJ) 0.3 MG TABLET PO SCH (09:22)
[2016-08-07] MEDS: METOCLOPRAMIDE 10 MG TABLET PO SCH ×3 (11:30→20:52)
--- NOTE | 2016-08-07 13:06 | Hospitalist Progress Note ---
Assessment and Plan - Time spent with patient Time spent with patient: Greater than 30 minutes (1) Right flank pain Status: Acute Assessment and plan: Appears to have resolved. Current Visit: Yes (2) Constipation Status: Chronic Assessment and plan: Has had many bowel movements with enemas. Continue to manage. Improving, appreciate Dr Morales assistance. Current Visit: Yes (3) Micronodular cirrhosis of liver, non-alcoholic Status: Chronic Assessment and plan: Pancytopenia and elevated ammonia levels. GI is involved. Appreciate assistance. Current Visit: No (4) Diabetes mellitus Status: Chronic Assessment and plan: Continue current management. Current Visit: Yes Qualifiers: Diabetes mellitus type: type 2 (5) Hypothyroidism Status: Acute Assessment and plan: Obtain TSH. Continue management. Current Visit: Yes Hospitalist: Subjective Interval history: No complaints, no overnight events. Exam - Constitutional Vitals: Period Temp Pulse Resp BP Sys/Leija Pulse Ox Last 24 Hr 97.6 F-98.6 F 74-88 18-20 111-145/63-83 90-96 General appearance: no acute distress - Head Head exam: Present: normocephalic, atraumatic - Eye Eye exam: Present: EOMI Pupils: Present: NICOLA - ENT ENT exam: Present: normal exam - Neck Neck exam: Present: normal inspection - Respiratory Respiratory exam: Present: clear to auscultation bilaterally. Absent: rhonchi, wheezes - Cardiovascular Cardiovascular exam: Present: regular rate and rhythm. Absent: gallop, rubs, systolic murmur - GI/Abdominal GI/Abdominal exam: Present: normal bowel sounds, soft. Absent: distended, firm , guarding, tenderness, rebound - Extremities Exam Extremities exam: Present: normal inspection. Absent: calf tenderness, edema Results - Labs CBC & BMP: 08/06/16 05:32 08/06/16 05:32 Lab Results: I have reviewed the past 24 hour labs Quality Measures - VTE Contraindication to Pharmacological VTE Prophylaxis: Thrombocytopenia
[2016-08-07] MEDS ORDERED: PANTOPRAZOLE 40 MG TABLET PO ONE (16:45)
[2016-08-07] MEDS: PANTOPRAZOLE 40 MG TABLET PO SCH ×2 (16:46→19:56)
[2016-08-07] MEDS: DOXEPIN 100 MG CAPSULE PO SCH (20:52)
[2016-08-07] MEDS: PRAZOSIN 1 MG CAPSULE PO SCH (20:52)
[2016-08-07] MEDS: ZALEPLON 5 MG CAPSULE PO SCH (20:52)
[2016-08-08] MEDS: LEVOTHYROXINE 100 MCG TABLET PO SCH (06:24)
[2016-08-08] MEDS: SODIUM CHLOR 0.9% KCL 40 MEQ 40 MEQ/1,000 ML BAG IV SCH ×2 (06:24→06:25)
[2016-08-08] MEDS: PANTOPRAZOLE 40 MG TABLET PO SCH (06:24)
[2016-08-08] MEDS: KETOROLAC 30 MG/1 ML VIAL IV PRN (06:28)
--- NOTE | 2016-08-08 07:58 | General Surgery Progress Note ---
Assessment and Plan (1) Right lower quadrant abdominal pain Status: Acute Assessment and plan: The etiology of her pain is unclear. It appears to be chronic. It may be related to her recent stopping of narcotics. Her pain is really more in her groin on exam than on her abdomen. There does not appear to be much association with her chronic GI complaints. I cannot detect a hernia on physical exam with her coughing straining or Valsalva. I reviewed her CT scan images myself and cannot see a hernia. I do not see much that I can offer surgically that is likely to help. She certainly is a very high surgical risk with her cirrhosis. I think that it would be worthwhile for her to be evaluated by her pain management doctors for consideration of a nerve block in her groin. This could be accomplished as an outpatient with her regular physician. 08/08: She has less pain than before but still says that she has pain in her right groin. Her physical exam is unchanged I cannot appreciate a hernia and there is really no tenderness. I suspect that this is abdominal wall pain. I have recommended that she see her pain treatment position after discharge. They may can consider a nerve block. I do not think that there is an acute surgical problem and going to sign off for now. Dr. Neely is covering for the weekend if needed. Current Visit: Yes Subjective Patient reports: Present: feels better, pain is less, bowel movement. Absent: nausea, vomiting, fever Exam - Constitutional Vitals: Period Temp Pulse Resp BP Sys/Leija Pulse Ox Last 24 Hr 97.7 F-98.6 F 79-88 16-18 124-143/70-84 91-96 General appearance: no acute distress - Eye Eye exam: Absent: scleral icterus - ENT Mouth exam: Present: normal voice - Respiratory Respiratory exam: Absent: accessory muscle use - GI/Abdominal GI/Abdominal exam: Present: soft. Absent: distended, guarding, hernia, mass, tenderness, rebound Results - Labs CBC & BMP: 08/06/16 05:32 08/06/16 05:32 Quality Measures - VTE Contraindication to Pharmacological VTE Prophylaxis: Thrombocytopenia
[2016-08-08] MEDS: METOCLOPRAMIDE 10 MG TABLET PO SCH (08:03)
[2016-08-08] MEDS: FUROSEMIDE 20 MG TABLET PO SCH (08:03)
[2016-08-08] MEDS: POLYETHYLENE GLYCOL POWDER 17 GM PACK PO SCH (08:03)
[2016-08-08] MEDS: metFORMIN 500 MG TABLET PO SCH (08:03)
[2016-08-08] MEDS: ESTROGENS (CONJ) 0.3 MG TABLET PO SCH (08:03)
[2016-08-08] MEDS: clonazePAM 0.5 MG TABLET PO SCH (08:04)
[2016-08-08] MEDS: PARoxetine 20 MG TABLET PO SCH (08:04)
[2016-08-08] MEDS: LINACLOTIDE 145 MCG CAPSULE PO SCH (08:04)
[2016-08-08] MEDS: INSULIN REGULAR 100 UNIT/ML SUBCUT SCH (08:10)
[2016-08-08] MEDS: INSULIN LISPRO 100 UNIT/ML SUBCUT SCH (08:16)
[2016-08-08] MEDS: INSULIN GLARGINE 100 UNIT/ML SUBCUT SCH (08:16)
[2016-08-08 08:52] VITALS: BP 147/95
--- NOTE | 2016-08-08 09:14 | Gastrointestinal Progress Note ---
Assessment and Plan (1) Constipation Status: Chronic Assessment and plan: As mentioned in the office note from 07/24/16 and in my summary below, this patient's family has a history of colonic inertia and she has a history of chronic constipation which is required Linzess and MiraLAX. 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 Her compliance with the outpatient regimen is not clear. She does not need narcotics she could possibly have her pain treated with some Toradol but I would use this sparingly. We will clean her out with a bowel prep which has worked in the past, clear liquid diet, MiraLAX 3 times daily for her bowel movements, and will restart her outpatient Linzess 290 mg per day. I suspect this will get her bowels running adequately. Whether we can keep them running is another question when she leaves the hospital. She has a mindset that she will likely only get cured with surgery. 08/07/16--Again discussed with the patient all the reasons she does not want to be on morphine in terms of long-term suppression of her bowel function, and stopping the narcotics once again and she understands the reasoning behind this. We will try switching her over to oral Reglan and oral pantoprazole again. I will advance her diet. Her pain is now down to a 3 out of 10 and she is starting to have liquid bowel movements as a result of restarting her Linzess as well as the bowel prep she has been given. She is going to be on MiraLAX in addition. If she fails the MiraLAX and Linzess think we will do a Sitzmarks study as our next test to look for colonic inertia. Appreciate Dr. Beasley III evaluation for surgically related causes for her pain. This patient has been known to embellish. 08/08/16--the patient is doing better her combination of Linzess and MiraLAX as 3 times per day now starting to have 1-2 bowel movements per day with decreased pain down to 2 out of 10 mostly in the right lower quadrant. I suspect that most of this pain is due to obstipation and she may be headed towards the development of colonic inertia. If the above regimen fails at home in the future we would like likely do a Sitzmarks ring study as our next test and see if we can establish the diagnosis of colonic inertia. As per her request I have written her for some ketorolac for the next 5 days as needed for pain and I am writing her a prescription for her Linzess which she has been having difficulty getting from the [email or web address]. This will be designated is medically necessary medication. She can be discharged in my opinion. I will sign off the case at this time. Current Visit: Yes (2) Micronodular cirrhosis of liver, non-alcoholic Status: Chronic Assessment and plan: This patient has a micronodular cirrhosis which has resulted in hepatic encephalopathy but not ascites in the past. Her ammonia level is slightly elevated at 68 but she is also been not having any bowel movements. She is not on any lactulose at the present time as I am trying to avoid the bloating with this medication. This is made her sick in the past and she does not seem confused to me now. We will check this on a daily basis as we get her bowels running. If it lapses above 80-90 mg/dL we will simply have to start the lactulose again or put her on Xifaxan 550 mg p.o. twice daily as an alternative. 08/07/16--the ammonia level is now down to 64. We will restart regular feedings and observe this as well as patient cognition. I would like to avoid lactulose seeing as this bloats her and may be adding to her nausea. We may have to start Xifaxan twice daily if starts to display hepatic encephalopathy. 08/08/16--the patient seems alert still and is not excessively confused. Her ammonia levels up to 76 but I suspect this is her about her baseline. I would like to avoid lactulose as mentioned above we can consider uses Xifaxan especially as an outpatient if her ammonia level continues to rise with p.o. intake at home. She is advised to have a low sodium 60 g protein diet as an outpatient. I will write her a follow-up appointment with me for 6 weeks. Current Visit: No (3) Pancytopenia Problem details: longstanding pancytopenia Status: Chronic Assessment and plan: Dr. Kee has evaluated this in the past with a bone marrow biopsy and this was relatively unrevealing. She is getting iron supplementation, her hematocrit is stable at 31-34%. No further workup on this issue. 08/07/16--no changes 08/08/16--no changes Current Visit: No (4) Hepatic encephalopathy Status: Acute Assessment and plan: As mentioned above I believe this is probably stable at the present time, we will continue to watch her mentation and decide whether or not further intervention with lactulose initiation or side effects and will be required based on how this trends after the patient is emptying her colon better. 08/07/16--consider Xifaxan if the ammonia level increases significantly with p.o. intake tomorrow. She is doing well tomorrow she can certainly be discharged on some Toradol orally. DO NOT RESTART NARCOTICS IN THIS PATIENT. 08/08/16--no changes from above, Toradol prescription written, Linzess prescription written as medically necessary, this patient to be discharged today. When I follow her up in 6 weeks in the office I will recheck an ammonia level. Current Visit: No Gastroenterology - PN: Subj Interval history: The patient states that her pain is now about a 2 out of 10 in intensity and she is willing to go home. She has had 2 bowel movements since yesterday. She is not yet interested in seeing pain management for this condition but she does asked that I write her some Toradol to take home with her. She has been having some problems getting the Linzess and I have written that this should be medically necessary on her prescription provided. Exam (Progress Note) - Constitutional Vitals: Period Temp Pulse Resp BP Sys/Leija Pulse Ox Last 24 Hr 97.7 F-98.5 F 79-88 16-18 124-147/70-95 91-96 General appearance: no acute distress - Head Head exam: Present: normocephalic, atraumatic - Eye Eye exam: Present: EOMI Pupils: Present: NICOLA - Respiratory Respiratory exam: Present: clear to auscultation bilaterally. Absent: rhonchi, stridor, wheezes - Cardiovascular Cardiovascular exam: Present: regular rate and rhythm - GI/Abdominal GI/Abdominal exam: Present: normal bowel sounds, distended, soft. Absent: guarding, tenderness, rebound - Extremities Exam Extremities exam: Present: normal inspection. Absent: edema - Neurological Exam Neurological exam: Present: alert, oriented X3. Absent: CN II-XII intact, motor sensory deficit - Psychiatric Psychiatric exam: Present: normal affect, normal mood - Skin Skin exam: Present: warm, other (Spider angiomas over the chest.) Results - Labs CBC & BMP: 08/06/16 05:32 08/06/16 05:32
--- NOTE | 2016-08-08 10:14 | Discharge Summary ---
Hospital Course - Hospital Course Hospital Course: Ms Cummings presented with abdominal pain. CT of the abdomen and pelvis revealed constipation with no acute findings. GI was consulted and started laxative treatment. Symptoms of constipation resolved. By discharge she had met maximum benefit of hospitalization. - Time spent with patient Time with patient DS: Greater than 30 minutes Diagnosis - Discharge Diagnosis (1) Right flank pain Status: Acute (2) Constipation Status: Chronic (3) Micronodular cirrhosis of liver, non-alcoholic Status: Chronic (4) Diabetes mellitus Status: Chronic (5) Hypothyroidism Status: Acute Discharge Plan - Discharge Data Disposition: Disch To Home/Self Care Condition at Discharge: Stable Discharge Diet: advance to your usual diet Activity: resume usual activities as tolerated Hygiene: no restrictions - Discharge Medications New Linaclotide [Linzess] 290 mcg PO AC BREAKFAST capsule Polyethylene Glycol Powder [Miralax] 17 gm PO TID #90 packet Continue Insulin Aspart [NovoLOG FlexPen] 15 unit SUBCUT TID Insulin Glargine [Lantus] 60 unit SUBCUT BID Zolpidem [Ambien] 2.5 mg PO BEDTIME QUEtiapine [SEROquel] 800 mg PO BEDTIME Prazosin [Minipress] 2 mg PO BEDTIME Doxepin [SINEquan] 100 mg PO BEDTIME Estrogens(Conj) Tab [Premarin Tab] 0.9 mg PO DAILY Furosemide Tab [Lasix Tab] 20 mg PO DAILY Levothyroxine Tab [Synthroid Tab] 100 mcg PO DAILY clonazePAM [Clonazepam] 1 mg PO BID #0 Omeprazole 40 mg PO DAILY PARoxetine [Paxil] 40 mg PO DAILY tablet metFORMIN [Glucophage] 1,000 mg PO BID W/MEALS #0 - Follow Up or Referral - Forms/Instructions Exam - Constitutional Vitals: Period Temp Pulse Resp BP Sys/Leija Pulse Ox Last 24 Hr 97.7 F-98.5 F 79-88 16-18 124-147/70-95 91-96 General appearance: normal weight, no acute distress - Head Head exam: Present: normal inspection, normocephalic, atraumatic - Eye Eye exam: Present: EOMI Pupils: Present: NICOLA - ENT ENT exam: Present: normal exam - Neck Neck exam: Present: normal inspection - Respiratory Respiratory exam: Present: clear to auscultation bilaterally - Cardiovascular Cardiovascular exam: Present: regular rate and rhythm - GI/Abdominal GI/Abdominal exam: Present: normal bowel sounds, ascites, distended - Extremities Exam Extremities exam: Present: normal inspection Discharge Results Labs on day of discharge: Labs from last 24 hours 08/08/16 08/08/16 08/07/16 08:09 06:42 20:04 POC Glucose 208 H 126 H Ammonia 76 H 08/07/16 08/07/16 15:30 11:24 POC Glucose 137 H 152 H Ammonia DS: Provider Date of admission: 08/06/16 14:16 Primary care physician: . No PCP Attending physician on admission: Nolvia Medley MD Discharging clinician: Nolvia Medley MD Expected date of discharge: 08/08/16
== END 2016-08-08 11:14 | disposition home or self-care (01) | DRG 392 ==
LOC: N.ED 16:24 → N.EDINP 16:24 → N.5E 21:08
PROVIDERS: ADMIT Internal Medicine; ATTEND Internal Medicine

== ENCOUNTER 2018-01-04 14:37 | Inpatient (IN) ==
[2018-01-04 18:00] LABS: Basophils % 0.3 % (0.0-0.8); Eosinophils % 0.3 % (0.00-10.9); Hematocrit 30.9 VOL% (35.7-47.0); Hemoglobin 9.3 GM/DL (12.0-16.0); Immature Granulocytes % 0.6 %; Immature Granulocytes Absolute 0.02 #; Lymphocytes # 0.4 10*3/uL (1.4-4.0); Lymphocytes % 12.3 % (21.3-54.2); Mean Corpuscular HGB Conc 30.1 GM/DL (32-36); Mean Corpuscular Hemoglobin 24 PG (27-34); Mean Corpuscular Volume 78.2 FL (87-102); Mean Platelet Volume 10.9 FL (9.6-12.0); Monocytes # 0.1 10*3/uL (0.11-0.8); Monocytes % 1.8 % (1.7-12.7); Neutrophils # 2.8 10*3/uL (1.4-7.4); Neutrophils % 84.7 % (38.7-73.9); Red Blood Count 3.95 MC/CUMM (3.8-5.5); Red Cell Distribution Width 16.3 % (9.3-17.3); White Blood Count 3.3 T/CUMM (4-12)
[2018-01-04 18:04] LABS: Platelet Count 56 T/CUMM (130-400)
[2018-01-04 18:14] LABS: ABG HCO3 27.8 MMOL/L (20-26); ABG Oxygen Saturation 97.3 % (95-100); ABG PCO2 43.5 MM HG (35-48); ABG PH 7.423 (7.35-7.45); ABG PO2 100.6 MM HG (80-95); ABG TCO2 29.1 MMOL/L (23-27)
[2018-01-04] MEDS ORDERED: DOCUSATE SODIUM 100 MG CAPSULE PO PRN (18:27)
[2018-01-04] MEDS ORDERED: diphenhydrAMINE CAP 25 MG CAPSULE PO PRN (18:27)
[2018-01-04] MEDS ORDERED: ONDANSETRON 4 MG/2 ML VIAL IV PRN (18:27)
[2018-01-04] MEDS ORDERED: guaiFENesin/DM ER 600-30 MG TABLET PO PRN (18:27)
[2018-01-04] MEDS ORDERED: ACETAMINOPHEN 325 MG TABLET PO PRN ×2 (18:27)
[2018-01-04 18:30] LABS: Albumin 3.4 G/DL (3.4-5.0); Bilirubin,Total 0.7 MG/DL (0.2-1.0); Calcium 8.3 MG/DL (8.5-10.1); Osmolality,Calculated 284.2 MOS/KG (273-304); Potassium 4.1 MMOL/L (3.5-5.1); Total Protein 7.8 G/DL (6.4-8.3)
[2018-01-04] MEDS ORDERED: SODIUM CHLORIDE 0.9% 1,000 ML IV SCH (18:30)
[2018-01-04] MEDS ORDERED: MORPHINE 4 MG/1 ML VIAL IV PRN (18:34)
[2018-01-04] MEDS ORDERED: FUROSEMIDE 40 MG/4 ML VIAL IV ONE (18:39)
[2018-01-04] MEDS ORDERED: DEXTROSE 50% 25 GM/50 ML VIAL IV PRN (18:41)
[2018-01-04] MEDS ORDERED: GLUCAGON 1 MG VIAL IM PRN (18:41)
[2018-01-04] MEDS ORDERED: NITROGLYCERIN SL 0.4 MG TABLET SL ONE ×2 (19:24→20:09)
[2018-01-04] MEDS ORDERED: ASPIRIN CHEW 81 MG TABLET PO ONE (19:25)
[2018-01-04] MEDS ORDERED: NALOXONE 0.4 MG/ML VIAL ONE (19:28)
[2018-01-04 19:58] LABS: ABG Base Excess 2.2 MMOL/L (-2.5-2.5); ABG HCO3 26.4 MMOL/L (20-26); ABG Oxygen Saturation 96.9 % (95-100); ABG PCO2 38.9 MM HG (35-48); ABG PO2 86.1 MM HG (80-95)
[2018-01-04] MEDS ORDERED: NALOXONE 0.4 MG/ML VIAL IV PRN (20:08)
[2018-01-04] MEDS ORDERED: cefTRIAXone 1,000 MG in SYRINGE 1 EACH IV SCH (20:45)
[2018-01-04] MEDS ORDERED: AZITHROMYCIN INJ 500 MG in SODIUM CHLORIDE 0.9% 250 ML IV SCH (21:00)
[2018-01-04] MEDS: PRAZOSIN 1 MG CAPSULE PO SCH (21:56)
[2018-01-04] MEDS: INSULIN LISPRO 100 UNIT/ML SUBCUT SCH (21:56)
[2018-01-04] MEDS: ZALEPLON 5 MG CAPSULE PO SCH (21:57)
[2018-01-04] MEDS: DOXEPIN 25 MG CAPSULE PO SCH (21:57)
[2018-01-04] MEDS ORDERED: INSULIN GLARGINE 100 UNIT/ML SUBCUT ONE (22:00)
[2018-01-04] MEDS: RIFAXIMIN 550 MG TABLET PO SCH (22:02)
[2018-01-04] MEDS: SODIUM CHLORIDE 0.9% 1,000 ML IV SCH (22:18)
[2018-01-04] MEDS: MORPHINE 4 MG/1 ML VIAL IV PRN (23:35)
[2018-01-05] MEDS: ALBUTEROL/IPRATROPIUM 3 ML NEB RESP TX SCH ×6 (00:02→19:10)
[2018-01-05] MEDS: clonazePAM 0.5 MG TABLET PO PRN ×2 (02:52→20:05)
[2018-01-05 03:16] LABS: Basophils % 0.2 % (0.0-0.8); Eosinophils % 0.2 % (0.00-10.9); Hematocrit 29.9 VOL% (35.7-47.0); Immature Granulocytes % 0.2 %; Immature Granulocytes Absolute 0.01 #; Lymphocytes # 0.6 10*3/uL (1.4-4.0); Lymphocytes % 13.2 % (21.3-54.2); Mean Corpuscular HGB Conc 30.1 GM/DL (32-36); Mean Corpuscular Hemoglobin 23 PG (27-34); Mean Corpuscular Volume 77.7 FL (87-102); Mean Platelet Volume 11.1 FL (9.6-12.0); Monocytes # 0.3 10*3/uL (0.11-0.8); Monocytes % 6.4 % (1.7-12.7); Neutrophils # 3.6 10*3/uL (1.4-7.4); Neutrophils % 79.8 % (38.7-73.9); Red Blood Count 3.85 MC/CUMM (3.8-5.5); Red Cell Distribution Width 16.4 % (9.3-17.3); White Blood Count 4.6 T/CUMM (4-12)
[2018-01-05 03:19] LABS: Platelet Count 55 T/CUMM (130-400)
[2018-01-05 03:27] LABS: Calcium 7.8 MG/DL (8.5-10.1); Osmolality,Calculated 283.1 MOS/KG (273-304); Potassium 3.9 MMOL/L (3.5-5.1); Risk Ratio 5.45; Thyroid Stimulating Hormone 0.632 uIU/ml (0.358-3.74); VLDL CHOLESTEROL 66.4 MG/DL
[2018-01-05] MEDS ORDERED: MAGNESIUM SULF RIDER 2 GM in PREMIX 1 EACH IV ONE (05:00)
[2018-01-05] MEDS: LEVOTHYROXINE 100 MCG TABLET PO SCH (06:04)
[2018-01-05] MEDS: MORPHINE 4 MG/1 ML VIAL IV PRN ×2 (06:05→19:05)
[2018-01-05] MEDS: oxyCODONE/ACETAMINOPHEN 5-325 MG TABLET PO PRN ×3 (09:32→17:38)
[2018-01-05] MEDS: PARoxetine 20 MG TABLET PO SCH (09:33)
[2018-01-05] MEDS: SPIRONOLACTONE 50 MG TABLET PO SCH (09:34)
[2018-01-05] MEDS: OMEGA 3 ACID ETHYL ESTERS 1 GM CAPSULE PO SCH (09:35)
[2018-01-05] MEDS: ROSUVASTATIN 20 MG TABLET PO SCH (09:37)
[2018-01-05] MEDS: FUROSEMIDE 40 MG TABLET PO SCH (09:37)
[2018-01-05] MEDS: PANTOPRAZOLE 40 MG TABLET PO SCH (09:37)
[2018-01-05] MEDS: RIFAXIMIN 550 MG TABLET PO SCH ×2 (09:37→20:05)
[2018-01-05] MEDS: LACTULOSE 20 GM/30 ML UDCUP PO SCH ×3 (09:38→17:26)
[2018-01-05] MEDS: INSULIN LISPRO 100 UNIT/ML SUBCUT SCH ×2 (09:40→17:26)
[2018-01-05] MEDS: PIPERACILLIN/TAZOBACTAM 3,375 MG in SODIUM CHLORIDE 0.9% 100 ML IV SCH ×2 (09:42→17:27)
[2018-01-05] MEDS ORDERED: OXYMETAZOLINE 0.05% NASAL SPRAY 15 ML BOTTLE BOTH NARES PRN (10:00)
[2018-01-05] MEDS: SODIUM CHLORIDE 0.9% 1,000 ML IV SCH (10:30)
[2018-01-05] MEDS ORDERED: DEXTROSE 50% 25 GM/50 ML VIAL IV PRN (11:18)
[2018-01-05] MEDS ORDERED: GLUCAGON 1 MG VIAL IM PRN (11:18)
[2018-01-05] MEDS: ESTROGENS (CONJ) 0.9 MG TABLET PO SCH (11:20)
[2018-01-05] MEDS: VANCOMYCIN INJ 1,500 MG in SODIUM CHLORIDE 0.9% 500 ML IV SCH (12:18)
[2018-01-05] MEDS: PRAZOSIN 1 MG CAPSULE PO SCH (20:05)
[2018-01-05] MEDS: ZALEPLON 5 MG CAPSULE PO SCH (20:05)
[2018-01-05] MEDS: DOXEPIN 25 MG CAPSULE PO SCH (20:05)
[2018-01-06] MEDS: SODIUM CHLORIDE 0.9% 1,000 ML IV SCH (00:02)
[2018-01-06] MEDS: VANCOMYCIN INJ 1,500 MG in SODIUM CHLORIDE 0.9% 500 ML IV SCH ×2 (00:02→12:08)
[2018-01-06] MEDS: ALBUTEROL/IPRATROPIUM 3 ML NEB RESP TX SCH ×7 (00:08→23:59)
[2018-01-06] MEDS: PIPERACILLIN/TAZOBACTAM 3,375 MG in SODIUM CHLORIDE 0.9% 100 ML IV SCH ×3 (02:38→17:00)
[2018-01-06] MEDS: LEVOTHYROXINE 100 MCG TABLET PO SCH (05:46)
[2018-01-06] MEDS: MORPHINE 4 MG/1 ML VIAL IV PRN ×2 (08:39→10:30)
[2018-01-06] MEDS: OMEGA 3 ACID ETHYL ESTERS 1 GM CAPSULE PO SCH (08:40)
[2018-01-06] MEDS: ROSUVASTATIN 20 MG TABLET PO SCH (08:41)
[2018-01-06] MEDS: clonazePAM 0.5 MG TABLET PO PRN ×2 (08:41→20:12)
[2018-01-06] MEDS: SPIRONOLACTONE 50 MG TABLET PO SCH (08:41)
[2018-01-06] MEDS: PARoxetine 20 MG TABLET PO SCH (08:42)
[2018-01-06] MEDS: PANTOPRAZOLE 40 MG TABLET PO SCH (08:42)
[2018-01-06] MEDS: FUROSEMIDE 40 MG TABLET PO SCH (08:42)
[2018-01-06] MEDS: RIFAXIMIN 550 MG TABLET PO SCH ×2 (08:42→20:12)
[2018-01-06] MEDS: INSULIN LISPRO 100 UNIT/ML SUBCUT SCH ×2 (08:42→16:55)
[2018-01-06] MEDS: LACTULOSE 20 GM/30 ML UDCUP PO SCH ×3 (08:43→16:55)
[2018-01-06] MEDS: ESTROGENS (CONJ) 0.9 MG TABLET PO SCH (08:43)
[2018-01-06 10:17] LABS: Apearance,Urine Slightly Hazy (Clear); Bilirubin,Urine Negative (Negative); Blood, Urine Negative (Negative); Glucose,Urine (UA) >=500 mg/dL (Negative); Ketones,Urine 5 mg/dL (Negative); Mucus,Urine Occasional /LPF (Occasional); Nitrite,Urine Negative (Negative); Protein,Urine Negative; RBC,Urine 5 /HPF (0-4); Squamous Epithelial Cell,Urine Occasional /HPF (0-10); Urine Color Yellow (Yellow); WBC,Urine 5 /HPF (0-6)
[2018-01-06] MEDS ORDERED: KETOROLAC 30 MG/1 ML VIAL IV ONE (11:23)
[2018-01-06] MEDS: KETOROLAC 15 MG/1 ML VIAL IV SCH ×2 (12:13→16:56)
[2018-01-06] MEDS ORDERED: FLUCONAZOLE 150 MG TABLET PO ONE (12:30)
[2018-01-06] MEDS: oxyCODONE/ACETAMINOPHEN 5-325 MG TABLET PO PRN (20:12)
[2018-01-06] MEDS: DOXEPIN 25 MG CAPSULE PO SCH (20:12)
[2018-01-06] MEDS: PRAZOSIN 1 MG CAPSULE PO SCH (20:21)
[2018-01-06] MEDS: NYSTATIN CREAM 15 GM TUBE TOP SCH (20:21)
[2018-01-06] MEDS: ZALEPLON 5 MG CAPSULE PO SCH (20:22)
[2018-01-06] MEDS: QUETIAPINE FUMARATE 800 MG PO SCH (20:23)
[2018-01-07] MEDS: VANCOMYCIN INJ 1,500 MG in SODIUM CHLORIDE 0.9% 500 ML IV SCH ×2 (00:42→12:49)
[2018-01-07] MEDS: KETOROLAC 15 MG/1 ML VIAL IV SCH ×4 (00:42→16:46)
[2018-01-07] MEDS: PIPERACILLIN/TAZOBACTAM 3,375 MG in SODIUM CHLORIDE 0.9% 100 ML IV SCH ×3 (02:44→17:11)
[2018-01-07] MEDS: ALBUTEROL/IPRATROPIUM 3 ML NEB RESP TX SCH ×6 (03:09→23:32)
[2018-01-07] MEDS: LEVOTHYROXINE 100 MCG TABLET PO SCH (05:49)
[2018-01-07 05:55] LABS: Basophils % 0.4 % (0.0-0.8); Eosinophils # 0.1 10*3/uL (0.0-0.87); Eosinophils % 2.4 % (0.00-10.9); Hematocrit 27.2 VOL% (35.7-47.0); Immature Granulocytes % 0.4 %; Immature Granulocytes Absolute 0.01 #; Lymphocytes % 40.3 % (21.3-54.2); Mean Corpuscular Hemoglobin 24 PG (27-34); Mean Platelet Volume 11.4 FL (9.6-12.0); Monocytes # 0.2 10*3/uL (0.11-0.8); Monocytes % 7.9 % (1.7-12.7); Neutrophils # 1.2 10*3/uL (1.4-7.4); Neutrophils % 48.6 % (38.7-73.9); Red Blood Count 3.36 MC/CUMM (3.8-5.5); Red Cell Distribution Width 17.2 % (9.3-17.3)
[2018-01-07 06:07] LABS: Hemoglobin 7.9 GM/DL (12.0-16.0); Platelet Count 54 T/CUMM (130-400)
[2018-01-07 06:08] LABS: White Blood Count 2.5 T/CUMM (4-12)
[2018-01-07 06:16] LABS: Calcium 7.8 MG/DL (8.5-10.1); Osmolality,Calculated 283.4 MOS/KG (273-304); Potassium 3.5 MMOL/L (3.5-5.1)
[2018-01-07 06:34] LABS: Hypochromasia 1+; Microcytosis 1+; Ovalocytes Slight
[2018-01-07 06:35] LABS: Platelet Estimate Decreased; Polychromasia Slight
[2018-01-07] MEDS: LACTULOSE 20 GM/30 ML UDCUP PO SCH ×3 (08:30→16:46)
[2018-01-07] MEDS: clonazePAM 0.5 MG TABLET PO PRN (08:32)
[2018-01-07] MEDS: FUROSEMIDE 40 MG TABLET PO SCH (08:33)
[2018-01-07] MEDS: OMEGA 3 ACID ETHYL ESTERS 1 GM CAPSULE PO SCH (08:33)
[2018-01-07] MEDS: PANTOPRAZOLE 40 MG TABLET PO SCH (08:34)
[2018-01-07] MEDS: SPIRONOLACTONE 50 MG TABLET PO SCH (08:34)
[2018-01-07] MEDS: PARoxetine 20 MG TABLET PO SCH (08:34)
[2018-01-07] MEDS: INSULIN LISPRO 100 UNIT/ML SUBCUT SCH ×2 (08:35→16:45)
[2018-01-07] MEDS: NYSTATIN CREAM 15 GM TUBE TOP SCH ×2 (08:46→21:52)
[2018-01-07] MEDS: RIFAXIMIN 550 MG TABLET PO SCH ×2 (08:46→21:48)
[2018-01-07] MEDS: ESTROGENS (CONJ) 0.9 MG TABLET PO SCH (08:46)
[2018-01-07] MEDS: ROSUVASTATIN 20 MG TABLET PO SCH (08:46)
[2018-01-07] MEDS ORDERED: INSULIN GLARGINE 100 UNIT/ML SUBCUT SCH (21:00)
[2018-01-07] MEDS: DOXEPIN 25 MG CAPSULE PO SCH (21:48)
[2018-01-07] MEDS: PRAZOSIN 1 MG CAPSULE PO SCH (21:49)
[2018-01-07] MEDS: oxyCODONE/ACETAMINOPHEN 5-325 MG TABLET PO PRN (21:50)
[2018-01-07] MEDS: ZALEPLON 5 MG CAPSULE PO SCH (21:51)
[2018-01-07] MEDS: QUETIAPINE FUMARATE 800 MG PO SCH (21:52)
[2018-01-07] MEDS: CHLORHEXIDINE 0.12% ORAL RINSE 60 ML BOTTLE SWISH/SPIT SCH (23:40)
[2018-01-08] MEDS: KETOROLAC 15 MG/1 ML VIAL IV SCH ×2 (01:13→06:29)
[2018-01-08] MEDS: VANCOMYCIN INJ 1,500 MG in SODIUM CHLORIDE 0.9% 500 ML IV SCH (01:15)
[2018-01-08] MEDS: ALBUTEROL/IPRATROPIUM 3 ML NEB RESP TX SCH ×5 (03:04→19:19)
[2018-01-08] MEDS: PIPERACILLIN/TAZOBACTAM 3,375 MG in SODIUM CHLORIDE 0.9% 100 ML IV SCH ×2 (04:02→10:42)
[2018-01-08 06:23] LABS: Basophils % 0.5 % (0.0-0.8); Eosinophils # 0.1 10*3/uL (0.0-0.87); Eosinophils % 2.9 % (0.00-10.9); Hematocrit 25.8 VOL% (35.7-47.0); Hemoglobin 7.7 GM/DL (12.0-16.0); Lymphocytes # 0.8 10*3/uL (1.4-4.0); Mean Corpuscular HGB Conc 29.8 GM/DL (32-36); Mean Corpuscular Hemoglobin 23 PG (27-34); Mean Corpuscular Volume 78.2 FL (87-102); Mean Platelet Volume 10.4 FL (9.6-12.0); Monocytes # 0.2 10*3/uL (0.11-0.8); Monocytes % 7.7 % (1.7-12.7); NRBC # 0.02 10*3/uL; Neutrophils # 1.1 10*3/uL (1.4-7.4); Neutrophils % 50.9 % (38.7-73.9); Platelet Count 48 T/CUMM (130-400); Red Cell Distribution Width 17.2 % (9.3-17.3); White Blood Count 2.1 T/CUMM (4-12)
[2018-01-08] MEDS: LEVOTHYROXINE 100 MCG TABLET PO SCH (06:29)
[2018-01-08 06:35] LABS: Calcium 7.6 MG/DL (8.5-10.1); Osmolality,Calculated 288.3 MOS/KG (273-304); Potassium 3.2 MMOL/L (3.5-5.1)
[2018-01-08 06:54] LABS: Eosinophils 3 % (0-10); Lymphocytes 42 % (20-55); Segmented Neutrophils 47 % (50-85); Total Cells Counted 100
[2018-01-08 06:55] LABS: Hypochromasia 1+; Microcytosis Slight; Ovalocytes Slight; Platelet Estimate Decreased
[2018-01-08] MEDS: INSULIN LISPRO 100 UNIT/ML SUBCUT SCH ×2 (08:55→17:18)
[2018-01-08] MEDS: PANTOPRAZOLE 40 MG TABLET PO SCH (08:56)
[2018-01-08] MEDS: ROSUVASTATIN 20 MG TABLET PO SCH (08:56)
[2018-01-08] MEDS: PARoxetine 20 MG TABLET PO SCH (08:56)
[2018-01-08] MEDS: SPIRONOLACTONE 50 MG TABLET PO SCH (08:57)
[2018-01-08] MEDS: RIFAXIMIN 550 MG TABLET PO SCH ×2 (08:57→21:18)
[2018-01-08] MEDS: LACTULOSE 20 GM/30 ML UDCUP PO SCH ×3 (08:58→16:55)
[2018-01-08] MEDS: FUROSEMIDE 40 MG TABLET PO SCH (08:59)
[2018-01-08] MEDS: CHLORHEXIDINE 0.12% ORAL RINSE 60 ML BOTTLE SWISH/SPIT SCH ×2 (08:59→21:22)
[2018-01-08] MEDS: ESTROGENS (CONJ) 0.9 MG TABLET PO SCH (08:59)
[2018-01-08] MEDS: OMEGA 3 ACID ETHYL ESTERS 1 GM CAPSULE PO SCH (09:00)
[2018-01-08] MEDS: NYSTATIN CREAM 15 GM TUBE TOP SCH ×2 (09:00→21:21)
[2018-01-08 15:23] LABS: Calcium 7.9 MG/DL (8.5-10.1); Osmolality,Calculated 290.4 MOS/KG (273-304)
[2018-01-08] MEDS: SODIUM CHLORIDE 0.45% 1,000 ML IV SCH (15:59)
[2018-01-08] MEDS ORDERED: INSULIN GLARGINE 100 UNIT/ML SUBCUT SCH (16:10)
[2018-01-08] MEDS ORDERED: LEVOFLOXACIN 500 MG TABLET PO SCH (16:30)
[2018-01-08] MEDS: oxyCODONE/ACETAMINOPHEN 5-325 MG TABLET PO PRN ×2 (17:23→21:23)
[2018-01-08] MEDS: DOXEPIN 25 MG CAPSULE PO SCH (21:17)
[2018-01-08] MEDS: ZALEPLON 5 MG CAPSULE PO SCH (21:17)
[2018-01-08] MEDS: PRAZOSIN 1 MG CAPSULE PO SCH (21:20)
[2018-01-08] MEDS: QUETIAPINE FUMARATE 800 MG PO SCH (21:22)
[2018-01-09] MEDS: ALBUTEROL/IPRATROPIUM 3 ML NEB RESP TX SCH ×8 (00:02→23:32)
[2018-01-09] MEDS: SODIUM CHLORIDE 0.45% 1,000 ML IV SCH ×2 (04:20→16:04)
[2018-01-09 05:19] LABS: Basophils % 0.5 % (0.0-0.8); Hematocrit 25.7 VOL% (35.7-47.0); Hemoglobin 7.6 GM/DL (12.0-16.0); Lymphocytes # 0.7 10*3/uL (1.4-4.0); Lymphocytes % 37.4 % (21.3-54.2); Mean Corpuscular HGB Conc 29.6 GM/DL (32-36); Mean Corpuscular Hemoglobin 23 PG (27-34); Mean Corpuscular Volume 78.4 FL (87-102); Mean Platelet Volume 10.9 FL (9.6-12.0); Monocytes # 0.2 10*3/uL (0.11-0.8); Monocytes % 7.6 % (1.7-12.7); Neutrophils % 52.5 % (38.7-73.9); Platelet Count 48 T/CUMM (130-400); Red Blood Count 3.28 MC/CUMM (3.8-5.5); Red Cell Distribution Width 17.2 % (9.3-17.3)
[2018-01-09 05:52] LABS: Calcium 8.1 MG/DL (8.5-10.1); Osmolality,Calculated 285.4 MOS/KG (273-304); Potassium 3.5 MMOL/L (3.5-5.1)
[2018-01-09 06:08] LABS: Anisocytosis Slight; Band Neutrophils 2 % (0-10); Eosinophils 3 % (0-10); Lymphocytes 45 % (20-55); Microcytosis 2+; Platelet Estimate Decreased; Segmented Neutrophils 49 % (50-85); Total Cells Counted 100
[2018-01-09] MEDS: LEVOTHYROXINE 100 MCG TABLET PO SCH (06:25)
[2018-01-09] MEDS: LACTULOSE 20 GM/30 ML UDCUP PO SCH ×4 (07:39→16:03)
[2018-01-09] MEDS: INSULIN LISPRO 100 UNIT/ML SUBCUT SCH ×2 (08:57→16:01)
[2018-01-09] MEDS: ROSUVASTATIN 20 MG TABLET PO SCH (08:58)
[2018-01-09] MEDS: PARoxetine 20 MG TABLET PO SCH (08:58)
[2018-01-09] MEDS: RIFAXIMIN 550 MG TABLET PO SCH ×2 (09:01→20:28)
[2018-01-09] MEDS: ESTROGENS (CONJ) 0.9 MG TABLET PO SCH (09:01)
[2018-01-09] MEDS: CHLORHEXIDINE 0.12% ORAL RINSE 60 ML BOTTLE SWISH/SPIT SCH ×2 (09:01→20:29)
[2018-01-09] MEDS: PANTOPRAZOLE 40 MG TABLET PO SCH (09:01)
[2018-01-09] MEDS: OMEGA 3 ACID ETHYL ESTERS 1 GM CAPSULE PO SCH (09:02)
[2018-01-09] MEDS: NYSTATIN CREAM 15 GM TUBE TOP SCH ×2 (09:02→20:28)
[2018-01-09] MEDS ORDERED: INSULIN GLARGINE 100 UNIT/ML SUBCUT SCH (09:33)
[2018-01-09] MEDS: oxyCODONE/ACETAMINOPHEN 5-325 MG TABLET PO PRN ×2 (12:57→20:27)
[2018-01-09] MEDS ORDERED: LEVOFLOXACIN 250 MG TABLET PO SCH (16:00)
[2018-01-09] MEDS: PRAZOSIN 1 MG CAPSULE PO SCH (20:27)
[2018-01-09] MEDS: ZALEPLON 5 MG CAPSULE PO SCH (20:28)
[2018-01-09] MEDS: DOXEPIN 25 MG CAPSULE PO SCH (20:28)
[2018-01-09] MEDS: QUETIAPINE FUMARATE 800 MG PO SCH (20:29)
[2018-01-10] MEDS: ALBUTEROL/IPRATROPIUM 3 ML NEB RESP TX SCH ×2 (02:56→08:29)
[2018-01-10 04:02] LABS: Calcium 8.2 MG/DL (8.5-10.1)
[2018-01-10 04:03] LABS: Osmolality,Calculated 284.4 MOS/KG (273-304); Potassium 3.6 MMOL/L (3.5-5.1)
[2018-01-10] MEDS: LEVOTHYROXINE 100 MCG TABLET PO SCH (06:10)
[2018-01-10] MEDS: SODIUM CHLORIDE 0.45% 1,000 ML IV SCH (06:10)
[2018-01-10 08:28] VITALS: BP 152/74
[2018-01-10] MEDS: INSULIN LISPRO 100 UNIT/ML SUBCUT SCH (08:49)
[2018-01-10] MEDS: PANTOPRAZOLE 40 MG TABLET PO SCH (08:49)
[2018-01-10] MEDS: LACTULOSE 20 GM/30 ML UDCUP PO SCH (08:49)
[2018-01-10] MEDS: ROSUVASTATIN 20 MG TABLET PO SCH (08:50)
[2018-01-10] MEDS: RIFAXIMIN 550 MG TABLET PO SCH (08:50)
[2018-01-10] MEDS: PARoxetine 20 MG TABLET PO SCH (08:50)
[2018-01-10] MEDS: OMEGA 3 ACID ETHYL ESTERS 1 GM CAPSULE PO SCH (08:52)
[2018-01-10] MEDS: NYSTATIN CREAM 15 GM TUBE TOP SCH (08:52)
[2018-01-10] MEDS: ESTROGENS (CONJ) 0.9 MG TABLET PO SCH (08:53)
[2018-01-10] MEDS: CHLORHEXIDINE 0.12% ORAL RINSE 60 ML BOTTLE SWISH/SPIT SCH (08:53)
== END 2018-01-10 10:00 | disposition left against medical advice (07) | DRG 177 ==
LOC: N.3E → N.CC 19:40 → SUATTDRO 01-05 08:19 → N.3E 01-07 17:58
PROVIDERS: ADMIT Dentist Oral and Maxillofacial Surgery; ATTEND Hospitalist